=== PATIENT | male | born 1970 | race Caucasian/White ===

== ENCOUNTER → 2021-04-19 08:27 | Outpatient (BNVA) | payer OTHER, SELFPAY | PROVIDERS: PCP Family Medicine; Visit Provider Orthopaedic Surgery | DX: Z01.812 Encounter for preprocedural laboratory examination (principal); Z20.822 Contact with and (suspected) exposure to COVID-19 | CPT/HCPCS: 87635 ==

== ENCOUNTER 2021-04-26 08:34 | Day surgery (SDC) | payer OTHER, SELFPAY ==
[2021-04-25 12:04] VITALS: BMI 28.4
[2021-04-26 08:46] VITALS: BP 126/75; PULSE 56; RESP 18; TEMP 37.1; O2SAT 98
[2021-04-26] MEDS: sodium chloride 0.9% 1,000 ML 30 ML IV (08:50)
--- NOTE | 2021-04-26 09:19 | ANES.PREANE2 ---
Pre-Anesthetic Assessment Pre-Anesthetic Assessment: Height/Weight: Height 1.96 m Weight 108.862 kg Temp Pulse Resp BP Pulse Ox 98.7 F 56 L 18 126/75 98 04/26/21 08:46 04/26/21 08:46 04/26/21 08:46 04/26/21 08:46 04/26/21 08:46 Preop Diagnosis: Cyst to the left elbow Proposed Procedure: Operation Date: 04/26/21 10:10 Proposed Procedures p excision of cyst left elbow [id number] m71.322(Left) - Kaushal Prasad MD Was Beta Milli taken within 24 hours: N/A Was Clonidine taken within 24 hours: N/A Last intake: Intake Last Liquid Date 04/25/21 Last Liquid Time 21:00 Last Solid Date 04/25/21 Last Solid Time 21:00 Social: Social History: Tobacco and No alcohol Exam: Pre-Anes Outpt Exam: alert, oriented x 3, clear to auscultation bilaterally and regular rate & rhythm Airway: Submandibular: WNL Cervical ROM: WNL Pulmonary: Pulmonary: Cough CV/HEM: CV/HEM: None reported : : None reported Hepatic: Hepatic: None reported GI: GI: None reported Metabolic: Metabolic: Hyperlipidemia Musc/skel: Musc/skel: Lower Back Pain Neuropsych: Neuropsych: None reported Anesthetic Plan: ASA status: 2 Anesthesia: General PFSH Anesthesia PFSH: Social History Smoking and tobacco status: current every day smoker Alcohol intake: never Data Anesthesia Cardiac Studies: No Data to Display
--- NOTE | 2021-04-26 09:55 | W.PM.OPSUD ---
Surgery/Procedure H&P Update DATE OF PROCEDURE: April 26, 2021 DATE H&P PERFORMED: 04/18/21 H&P UPDATE INFORMATION: I have reviewed H&P completed within last 30 days PREOP DIAGNOSIS: Cyst to the left elbow PLANNED PROCEDURE: Operation Date: 04/26/21 10:10 Proposed Procedures p excision of cyst left elbow [id number] m71.322(Left) - Kaushal Prasad MD
[2021-04-26] MEDS: clindamycin 600 MG/50 ML PREMIX 100 MG IV (10:00)
[2021-04-26 10:41] VITALS: BP 111/76; PULSE 62; RESP 16; TEMP 36.4; O2SAT 94
--- NOTE | 2021-04-26 10:43 | P.PCN_ITS ---
PACU note PACU note: VSS, Good respiratory effort, report to RECORDS MANAGEMENT TECHNICIAN Post-Anesthesia Exam: awake
--- NOTE | 2021-04-26 10:43 | PM.PACU ---
PACU note PACU note: VSS, Good respiratory effort, report to ELEVATOR OPERATOR FREIGHT Post-Anesthesia Exam: awake
[2021-04-26 10:47] VITALS: BP 112/78; PULSE 60; RESP 16; O2SAT 94
--- NOTE | 2021-04-26 10:47 | PM.OP ---
Operative Report Date of procedure: April 26, 2021 Pre-op Diagnosis: Cyst to the left elbow Post-op diagnosis: same Post-op Findings: Cyst left elbow Procedure Done: Excision subcutaneous cyst left elbow Specimens removed/disposition: Specimen was sent for pathology and routine culture Pathology: As above Anesthesia: MAC and Local Estimated blood loss (mL): 5 Findings: The patient had a 3 x 3 cm cyst just distal to the olecranon fold with a stephens mucinous material. Condition: stable Disposition: PACU Procedure: Christ was taken to the operating room and sedation was provided by anesthesia. He was prepped and draped with his left arm flexed over the body. The periphery of the lesion and skin overlying the mass was infiltrated with a solution of the 1% lidocaine with epinephrine and 0.5% Marcaine. A 3 cm long incision was made dorsally over the incision. The cyst was dissected free from the subcutaneous tissue and the overlying periosteum and distal bursa. On the back table it was open and deep contents sent for culture. The cyst itself was then sent to pathology. Wounds were irrigated with saline. Deep tissues were closed with 2-0 Vicryl. The skin was closed with 3-0 Prolene. The incision was covered with Xeroflo gauze 4 x 4's web roll and Bertram wrap. The patient was taken to recovery room in stable condition.
[2021-04-26 10:52] VITALS: BP 111/76; PULSE 60; RESP 16; TEMP 36.4; O2SAT 96
[2021-04-26 10:57] VITALS: BP 119/80; PULSE 66; RESP 18; TEMP 36.6; O2SAT 96
[2021-04-26] MEDS: HYDROcodone-acetaminophen 5-325 mg Tablet 1 TAB PO (11:07)
[2021-04-26 11:25] VITALS: BP 119/78; PULSE 55; RESP 18; TEMP 36.5; O2SAT 97
--- NOTE | 2021-04-26 15:13 | ANE.PACU2 ---
Inpatient post-anesthesia follow up: Airway intact: Yes Vital signs: Temperature 97.7 F Pulse Rate 55 Respiratory Rate 18 Blood Pressure 119/78 Pulse Oximetry 97 Oxygen Delivery Me thod Room Air Oxygen Flow Rate 94 Fraction of Inspir ed Oxygen Hydration adequate: Yes Nausea and vomiting: No Pain level: 3 Mental status: Baseline
== END 2021-04-26 11:34 | disposition home or self-care (01) ==
PROVIDERS: PCP Family Medicine; Visit Provider Orthopaedic Surgery
PROC: (CPT 11403; principal; 2021-04-26 10:00)
DX: L72.0 Epidermal cyst (principal); E78.5 Hyperlipidemia, unspecified; F17.210 Nicotine dependence, cigarettes, uncomplicated
CPT/HCPCS: 11403; 12032; 87070; 87075; 87205; 88304; 88307; J2704; J3010; J3490; J7030

== ENCOUNTER → 2023-04-30 17:49 | Outpatient (BNVA) | payer BC, SELFPAY | PROVIDERS: PCP Family Medicine; Visit Provider Emergency Medicine | DX: R30.0 Dysuria (principal); J20.8 Acute bronchitis due to other specified organisms; B96.89 Other specified bacterial agents as the cause of diseases classified elsewhere | CPT/HCPCS: 81000 ==